=== PATIENT | female | born 1945 | race Hispanic/Latino ===

== ENCOUNTER → 2017-09-02 | Day surgery (SDC) | payer MEDICARE ==
[2017-08-10 11:12] LABS: BASOPHILS % 0.4 % (0.0-1.0); EOSINOPHILS # (AUTO) 0.1 (0.0-0.4); EOSINOPHILS % 1.7 % (0.0-6.0); HEMATOCRIT 32.7 % (34.2-44.1); HEMOGLOBIN 10.1 g/dL (12.0-16.0); LYMPHOCYTES % 20.6 % (18.0-39.1); MEAN CORPUSCULAR HGB CONC 30.9 g/dL (31-35); MEAN CORPUSCULAR VOLUME 84.3 fL (81-99); MONOCYTES # (AUTO) 0.6 (0.2-0.8); MONOCYTES % 12.5 % (4.4-11.3); NEUTROPHILS % 64.6 % (38.7-80.0); PLATELET COUNT 207 x10e3/uL (140-360); RED BLOOD COUNT 3.88 x10e6/uL (3.6-5.1)
[2017-08-10 11:34] LABS: ANION GAP 13.2 mmol/L (8-16); CALCIUM 9.9 mg/dL (8.4-10.2); CREATININE, SERUM 1.2 mg/dL (0.57-1.11)
--- NOTE | 2017-08-10 11:36 | Diagnostic Imaging Report ---
PROCEDURE: Frontal and lateral views of the chest. COMPARISON: Chest radiograph 09/29/2016 INDICATIONS: PRE-OPERATIVE CHEST XRAY FOR LEFT KNEE SURGERY FINDINGS: Lines/tubes: None. Lungs: The lungs are well inflated and clear. There is no evidence of pneumonia or pulmonary edema. Pleura: There is no pleural effusion or pneumothorax. Heart and mediastinum: Stable mild enlargement of the cardiac silhouette. Bones: No acute bony abnormality. IMPRESSION: No acute cardiopulmonary disease. Dictated by: Joseph Aceves M.D. on 08/10/2017 at 11:36 Electronically approved by: Joseph Aceves M.D. on 08/10/2017 at 11:36
[2017-08-10 11:46] LABS: POTASSIUM 6.2 mmol/L (3.5-5.1)
[2017-08-31 12:04] LABS: BASOPHILS % 0.3 % (0.0-1.0); EOSINOPHILS # (AUTO) 0.1 (0.0-0.4); EOSINOPHILS % 1.8 % (0.0-6.0); HEMATOCRIT 33.8 % (34.2-44.1); HEMOGLOBIN 10.4 g/dL (12.0-16.0); LYMPHOCYTES # (AUTO) 0.9 (1.0-3.2); LYMPHOCYTES % 15.1 % (18.0-39.1); MEAN CORPUSCULAR HEMOGLOBIN 26.5 pg (28-32); MEAN CORPUSCULAR HGB CONC 30.8 g/dL (31-35); MONOCYTES # (AUTO) 0.7 (0.2-0.8); MONOCYTES % 10.9 % (4.4-11.3); NEUTROPHILS # (AUTO) 4.3 (2.1-6.9); NEUTROPHILS % 71.6 % (38.7-80.0); PLATELET COUNT 203 x10e3/uL (140-360); RED BLOOD COUNT 3.93 x10e6/uL (3.6-5.1); RED CELL DISTRIBUTION WIDTH 16.3 % (11.7-14.4)
[2017-08-31 12:28] LABS: ANION GAP 12.7 mmol/L (8-16); CALCIUM 10.1 mg/dL (8.4-10.2); CREATININE, SERUM 1.33 mg/dL (0.57-1.11); POTASSIUM 4.7 mmol/L (3.5-5.1)
[~2017-09-02] MED LIST: ACETAMINOPHEN650 M3 PO; AMLODIPINE BESYL5 MG PO; BUPIVACAINE 0.5%/EPI 30 ML SDV INJ ONE; CEFAZOLIN SOD 2 GM/D5W 50ML 50 ML IV ONE; CELEBREX100 MG PO; DEXAMETHASONE SOD PHOS INJ 4 MG/ML VIAL ONE; DIOVAN160 MG PO; EXFORGE 5-3201 EACH PO; FENTANYL CITRATE/PF 100MCG/2 ML INJ ONE; FERROUS GLUCON324 MG PO; GEMFIBROZIL600 MG PO; HYDROCHLOROTHIA25 MG PO; LEVOTHYROXINE75 MCG PO; LIDOCAINE HCL 2% LOCAL INJ 5 ML SDV VIAL INJ ONE; ONDANSETRON HCL INJ 2 MG/ML VIAL ONE; PAROXETINE HCL20 MG PO; PIOGLITAZONE/METFORM PO; PROPOFOL IV EMULSION 10 MG/ML 20 ML VIAL ONE; SEVOFLURANE INHAL SOLN 250 ML PEN BTL ONE; VITAMIN D3400 UNIT PO
--- OUTSIDE RECORDS SUMMARY | 2017-09-02 07:51 | XMS REPORT ---
Author Author [facility] Address Unknown Phone Unavailable Care Team Providers Care Inspector Barrel Name Role Phone TAIWO LUGO Unavailable Unavailable Problems This patient has no known problems. Allergies, Adverse Reactions, Alerts This patient has no known allergies or adverse reactions. Medications This patient has no known medications. Results Test Description Test Time Test Comments Text Results Atomic Results Result Comments CHEST 2 VIEWS [place] [address] Patient Name: LEWIS CHRISTIAN MR #: [id number] : 1945 Age/Sex: 72/F Req #: [id number] Adm Physician: Ordered by: ROSEMARY AGUIRRE MD Report #: [id number] Location: OR Room/Bed: Procedure: [id number] DX/CHEST 2 VIEWS Exam Date: 08/10/17 Exam Time: 1120 REPORT STATUS: Signed PROCEDURE: Frontal and lateral views of the chest. COMPARISON: Chest radiograph 09/29/2016 INDICATIONS: PRE -OPERATIVE CHEST XRAY FOR LEFT KNEE SURGERY FINDINGS: Lines/tubes: None. Lungs: The lungs are well inflated and clear. There is no evidence of pneumonia or pulmonary edema. Pleura: There is no pleural effusion or pneumothorax. Heart and mediastinum: Stable mild enlargement of the cardiac silhouette. Bones: No acute bony abnormality. IMPRESSION: No acute cardiopulmonary disease. Dictated by: Joseph Kessler M.D. on 08/10/2017 at 11:36 Electronically approved by: Joseph Kessler M.D. on 08/10/2017 at 11:36 Dictated By: JOSEPH KESSLER MD [id number] Transcribed By: MELANIE on 08/10/17 1136 COPY TO: ROSEMARY AGUIRRE MD
[2017-09-02] MEDS: DEXTROSE 5% 250ML 250 ML IV ONE ×2 (09:00→09:08)
--- NOTE | 2017-09-03 03:13 | Operative Report ---
DATE OF PROCEDURE: September 02, 2017 PREOPERATIVE DIAGNOSES 1. Left knee medial meniscus tear. 2. Left knee degenerative joint disease of the knee. OPERATIONS/PROCEDURES PERFORMED 1. Patient underwent left knee exam under anesthesia. 2. Left knee arthroscopy. 3. Left knee partial medial meniscectomy. 4. Left knee chondroplasty of the medial femoral condyle, medial plateau, and lateral plateau. TECHNOLOGY ADVISOR: None. ANESTHESIA: General endotracheal intubation. Anesthesia, IV fluids per anesthesia record. BRIEF DESCRIPTION OF OPERATIVE PROCEDURE: Ms. Moralez was taken to the operating room, placed in supine position on operating table. Following induction of anesthesia, as well as endotracheal intubation, the patient's left lower extremity was examined under anesthesia. She was found to have a mild effusion within the joint, but, otherwise, ligamentously stable knee. Patient's lower extremity was prepped and draped in standard surgical fashion. A 2-portal technique used to provide this patient arthroscopic evaluation of the joint. Examination of the suprapatellar pouch medial and lateral gutters found no evidence of loose bodies. There was no significant evidence of chondromalacia on the patellar and trochlear surfaces. Scope was advanced to medial compartment. The medial compartment demonstrated a torn medial meniscus. There was also chondromalacia of the articulating surfaces. A combination of biting forceps and a motorized shaver was used to resect the torn portion of meniscus. Chondroplasties of the medial femoral condyle and medial tibial plateau was performed at this time. Scope was then advanced to the intercondylar notch and the anterior cruciate ligament was identified, found to be intact. The scope was advanced in lateral compartment, and there was chondromalacia of the lateral tibial plateau. A chondroplasty of the surface was performed. The knee was then deflated of sterile normal saline. The portal sites were closed using 4-0 nylon suture. Portal sites were also, itself, injected with 0.5% Marcaine with epinephrine. Sterile dressings were applied, and the patient was then awakened, taken to post anesthesia care unit in stable condition. Job#: [id number]
== END | disposition home or self-care (01) ==
LOC: OR 07:49
PROVIDERS: ATTEND Specialist
DX: S83.222A Peripheral tear of medial meniscus, current injury, left knee, initial encounter (principal); M17.12 Unilateral primary osteoarthritis, left knee; E11.9 Type 2 diabetes mellitus without complications; F41.9 Anxiety disorder, unspecified; R06.83 Snoring; I10 Essential (primary) hypertension; E78.5 Hyperlipidemia, unspecified; E03.9 Hypothyroidism, unspecified; M94.262 Chondromalacia, left knee; Z01.810 Encounter for preprocedural cardiovascular examination; Z01.812 Encounter for preprocedural laboratory examination; Z01.818 Encounter for other preprocedural examination
CPT/HCPCS: 29881; 36415 ×3; 71046; 80048 ×2; 82948; 85025 ×2; 93005; J1100; J2001; J2405